=== PATIENT | female | born 2000 | race African-American/Black ===

== ENCOUNTER 2021-08-29 20:46 | Emergency (ER) | payer BC, MEDICAID, SELFPAY ==
--- NOTE | ~2021-08-29 | CT_ITS ---
EXAMINATION: CT brain wo con DATE: 08/29/2021 21:22 INDICATION: Head injury. TECHNIQUE: Computed tomography (CT) of the head was performed without intravenous contrast. The mA wa s adjusted according to patient size. Iterative reconstruction technique was employed. The dose-lengt h product was 605.33 mGy-cm. COMPARISON: None FINDINGS: There is no intracranial hemorrhage, acute infarction, or abnormal intracranial mass lesion . The ventricles are normal in size. There is mild mucosal thickening in the paranasal sinuses. The m astoid air cells are normal. The orbits are normal. There is left frontal lateral scalp soft tissue s welling. IMPRESSION: 1. Normal brain. Reviewed, dictated and finalized at location A. IMPRESSION: 1. Normal brain.
[2021-08-29 20:52] VITALS: BP 131/63; PULSE 74; RESP 18; TEMP 36.7; O2SAT 100
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
[2021-08-29] MEDS: ACETAMINOPHEN 500 MG TABLET 1000 MG PO (21:38)
[2021-08-29 21:52] VITALS: BP 120/71; PULSE 90; RESP 16; O2SAT 99
== END 2021-08-29 21:52 | disposition home or self-care (01) ==
PROVIDERS: Emergency Provider Emergency Medicine
DX: S00.93XA Contusion of unspecified part of head, initial encounter (principal); J45.909 Unspecified asthma, uncomplicated; Z87.891 Personal history of nicotine dependence; Y00.XXXA Assault by blunt object, initial encounter
CPT/HCPCS: 70450; 99284; A9270